=== PATIENT | female | born 1960 | race Caucasian/White ===

== ENCOUNTER → 2021-05-17 | Outpatient (CLI) | payer OTHER ==
--- NOTE | 2021-05-17 09:05 | REP ---
INDICATION: DYSPNEA, UNSPECIFIED. COMPARISON: 04/11/2016 the latest prior TECHNIQUE: PA and lateral FINDINGS: The cardiomediastinal silhouette lung allen are unchanged. There is chronic left CP angle blunting on the left and there are chronic curvilinear densities in the left lower lobe. No acute patchy parenchymal opacities or pleural effusions have developed. There is no change in the osseous structures. IMPRESSION: Stable appearing chronic changes. Consider follow-up with CT if clinically relevant. <Electronically signed by Mor Hebert > 05/17/21 0901
== END ==
LOC: M PLAIMG 08:33
PROVIDERS: ATTEND Internal Medicine Pulmonary Disease
DX: R06.00 Dyspnea, unspecified (principal)